=== PATIENT | male | born 1990 | race African-American/Black ===

== ENCOUNTER 2017-12-30 15:38 | Emergency (ER) | payer MEDICAID ==
[~2017-12-30] VITALS: Ht 177.8 cm; Wt 85.0 kg
[2017-12-30] MEDS ORDERED: ACETAMINOPHEN 325MG TABLET PO ONE (20:00)
[2017-12-30] MEDS ORDERED: LIDOCAINE HCL 1% 20ML VIAL (Pyxis) INJ MC ONE (22:45)
[2017-12-30] MEDS ORDERED: BACITRACIN ZINC OINT UDPKT TOP ONE (22:45)
[2017-12-31] MEDS ORDERED: IBUPROFEN 800MG TABLET PO ONE
[2017-12-31 00:33] VITALS: BP 93/68
== END 2017-12-31 00:33 | disposition home or self-care (01) ==
LOC: ER 15:50
DX: S01.112A Laceration without foreign body of left eyelid and periocular area, initial encounter (principal); S60.221A Contusion of right hand, initial encounter; H11.32 Conjunctival hemorrhage, left eye; V49.40XA Driver injured in collision with unspecified motor vehicles in traffic accident, initial encounter; Y93.89 Activity, other specified; Y92.89 Other specified places as the place of occurrence of the external cause; Y99.8 Other external cause status
CPT/HCPCS: 12011; 70450; 70486; 73130; 99284; J3490; X7700; Z7610

== ENCOUNTER 2018-01-06 11:22 | Emergency (ER) | payer MEDICAID ==
[~2018-01-06] VITALS: Ht 180.3 cm; Wt 86.0 kg
[2018-01-06 14:30] VITALS: BP 120/78
== END 2018-01-06 14:35 | disposition home or self-care (01) ==
LOC: ER 14:19
DX: S01.112D Laceration without foreign body of left eyelid and periocular area, subsequent encounter (principal); V49.9XXD Car occupant (driver) (passenger) injured in unspecified traffic accident, subsequent encounter
CPT/HCPCS: 99281; Z7610